=== PATIENT | male | born 1995 | race Caucasian/White ===

== ENCOUNTER 2018-03-15 20:49 | Emergency (ER) | payer OTHER ==
[~2018-03-15 20:49] MED LIST: LIORESAL 10MG T10 MG PO; MOTRIN 600 MG600 MG PO; TRAMADOL50 MG PO
--- NOTE | 2018-03-16 00:50 | CT SCAN REPORT ---
EXAMINATION: CT HEAD WITHOUT CONTRAST CLINICAL INFORMATION: Headache. COMPARISON: None. TECHNIQUE: Contiguous axial images of the brain were obtained without IV contrast. DLP: 721 mGy-cm. FINDINGS: There are no pathologic extra-axial fluid collections. The lateral, third, fourth ventricles are nondilated and concordant with the appearance of the sulci. There is no evidence for acute intraparenchymal hemorrhage or infarct. There is neither mass nor mass effect. There is no shift of midline structures. The paranasal sinuses and mastoid air cells are clear. There are no osseous lesions. IMPRESSION: No evidence for acute intracranial injury.
[2018-03-16] MEDS ORDERED: BUTALB-ACETAMI1 EACH PO (00:58)
--- NOTE | 2018-03-16 00:59 | ED HEADACHE COMPLAINT ---
History of Present Illness General Chief Complaint: General Adult Stated Complaint: "I HAVE BAD MIGRAIN AND PAIN LOWER BACK" Source: patient, old records, friend Exam Limitations: no limitations Vital Signs & Intake/Output Vital Signs & Intake/Output Vital Signs Date Time Temp Pulse Resp B/P B/P Pulse O2 O2 Flow FiO2 Mean Ox Delivery Rate 03/15 2348 Room Air 03/15 2058 98.7 73 16 143/91 96 Room Air Allergies Coded Allergies: NO KNOWN ALLERGIES (10/02/14) Reconcile Medications Baclofen (Lioresal) 10 MG TAB 1 TAB PO TIDPRN PRN muscle strain Ibuprofen (Motrin 600 MG Tab) 600 MG TAB 1 TAB PO Q6P PRN PAIN TRAMADOL HCL (Tramadol) 50 MG TAB 1-2 TAB PO Q6P PRN PAIN Triage Note: PT TO ED WITH C/O HEADACHE BEGINNING TONIGHT WHILE PT WAS AT WORK. WHILE DRIVING HOME, PT SUDDENLY HAD URGE TO VOID AND WAS UNABLE TO HOLD HIS BLADDER. ALSO HAD INTERMITTENT LOWER BACK PAIN, NOW RESOLVED. DENIES FEVERS OR ABD PAIN. DENIES NAUSEA, PHOTOSENSITIVITY. Triage Nurses Notes Reviewed? yes Onset: Just prior to arrival Duration: hour(s):, better, constant, continues in ED Timing: recent history Quality/Severity: moderate, sharp Head Injury Location: parietal No Modifying Factors: none HPI: Several hours prior to admission patient complains of right retro-orbital headache sharp constant nonradiating. As he was driving home from work he felt an urgent need to urinate with low back pain. After he voided the back pain disappeared. He denies fever chills nausea vomiting diarrhea abdominal pain chest pain shortness breath dysuria rash bleeding Past History Travel History Traveled to [place] past 21 day No Medical History Any Pertinent Medical History? see below for history Cardiovascular: PRE-HYPERTENSION Psychiatric: anxiety History of MRSA: No History of VRE: No History of CDIFF: No Surgical History Surgical History: non-contributory Psychosocial History What is your primary language Indonesian Tobacco Use: Never used Family History Family History, If Any: Relation not specified for: FH: heart disease Hx Contributory? No Review of Systems Review of Systems Constitutional: Reports: no symptoms. Eyes: Reports: no symptoms. Ears, Nose, Throat, Mouth: Reports: no symptoms. Respiratory: Reports: no symptoms. Cardiovascular: Reports: no symptoms. Gastrointestinal/Abdominal: Reports: no symptoms. Genitourinary: Reports: see HPI, urgency. Musculoskeletal: Reports: see HPI, back pain. Skin: Reports: no symptoms. Neurological/Psychological: Reports: see HPI, headache. Hematologic/Endocrine: Reports: no symptoms. Endocrine: Reports: no symptoms. Immunologic/Allergic: Reports: no symptoms. All Other Systems: Reviewed and Negative Physical Exam Physical Exam General Appearance: well developed/nourished, alert, awake, anxious, thin Head: atraumatic, normal appearance Eyes: Bilateral: normal appearance, PERRL, EOMI. Ears, Nose, Throat: normal pharynx, normal ENT inspection, hearing grossly normal Neck: normal inspection, supple, full range of motion, trachea midline Respiratory: normal breath sounds, chest non-tender, no respiratory distress, quiet respiration, lungs clear Cardiovascular: regular rate/rhythm, normal peripheral pulses, norml femoral pulses equa Gastrointestinal: normal bowel sounds, soft, non-tender, no organomegaly Back: normal inspection, normal range of motion, no vertebral tenderness Extremities: normal inspection, normal capillary refill, normal range of motion, no edema, no ligament instability Psychiatric: awake, alert, oriented x 3 Cranial Nerves: normal hearing, normal speech, PERRL Coordination/Gait: normal finger to nose, normal gait Motor/Sensory: no motor/sensory deficits Reflexes: 2+: bicep (R), bicep (L). Skin: intact, normal color, warm/dry Lymphatic: no anterior cervical [place] Core Measures Sepsis Present: No Sepsis Focused Exam Completed? No Progress Differential Diagnosis: migraine LEZAMA, tension LEZAMA Plan of Care: Orders Procedure Date/time Status URINALYSIS 03/15 2101 Complete Laboratory Tests 03/15/182154: Urine Color STRAW, Urine Clarity CLEAR, Urine pH 6.5, Ur Specific [place] <= 1.005, Urine Protein NEG, Urine Ketones NEG, Urine Nitrite NEG, Urine Bilirubin NEG, Urine Urobilinogen 0.2, Ur Leukocyte Esterase NEG, Ur Microscopic EXAM NOT REQUIRED, Urine Hemoglobin NEG, Urine Glucose NEG Departure Departure Time of Disposition: 53 Disposition: HOME OR SELF CARE Condition: Stable Clinical Impression Primary Impression: Migraine Secondary Impressions: Urinary urgency Referrals: Unknown (PCP/Family) Departure Forms: Customer Survey General Discharge Information Prescriptions: Current Visit Scripts Butalb/Acetaminophen/Caffeine ([id number]-[id number]-Hmhn 50-325-40) 1 TAB PO Q6H PRN migraine #30 TAB
[2018-03-16 01:06] VITALS: BP 133/85
== END 2018-03-16 01:06 ==
LOC: ERH 20:49
DX: G43.909 Migraine, unspecified, not intractable, without status migrainosus (principal); R39.15 Urgency of urination; F41.9 Anxiety disorder, unspecified
CPT/HCPCS: 81003